=== PATIENT | male | born 1955 | race Caucasian/White ===

== ENCOUNTER 2018-06-09 10:52 | Inpatient (IN) ==
[2018-06-09] MEDS ORDERED: Sod Chloride 0.9% Inj 1,000 ML IV.CONT SCH ×2 (12:00)
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
[2018-06-09 12:37] LABS: Baso % (Auto) 0.2 % (0.0-2.0); Eos # (Auto) 0.1 th/mm3 (0.0-0.4); Eos % (Auto) 1.4 % (0.0-4.0); Hematocrit 41.6 % (39.0-51.0); Hemoglobin 14.4 gm/dL (13.0-17.0); Lymph # (Auto) 1.1 th/mm3 (1.0-4.8); Lymph % (Auto) 14.7 % (9.0-44.0); Mean Corpuscular HGB Conc 34.7 % (32.0-36.0); Mean Corpuscular Hemoglobin 28.6 pg (27.0-34.0); Mean Corpuscular Volume 82.4 fL (80.0-100.0); Mean Platelet Volume 9.1 fL (7.0-11.0); Mono # (Auto) 0.7 th/mm3 (0.0-0.9); Mono % (Auto) 9.2 % (0.0-8.0); Neut # (Auto) 5.5 th/mm3 (1.8-7.7); Neut % (Auto) 74.5 % (16.0-70.0); Platelet Count 138 th/mm3 (150-450); Red Blood Count 5.05 mil/mm3 (4.50-5.90); Red Cell Distribution Width 13.8 % (11.6-17.2); White Blood Count 7.4 th/mm3 (4.0-11.0)
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
[2018-06-09 12:47] LABS: Activated Partial Thrombo Time 28.2 sec (24.3-30.1); Prothrombin Time 10.4 sec (9.8-11.6)
[2018-06-09] MEDS ORDERED: Sod Chloride 0.9% Inj 1,000 ML IV.SIG ONE ×2 (12:55→14:05)
[2018-06-09 13:11] LABS: Alanine Aminotransferase 14 U/L (12-78); Albumin 3.5 g/dL (3.4-5.0); Alkaline Phosphatase 159 U/L (45-117); Anion Gap 10 meq/L (5-15); Aspartate Aminotransferase 9 U/L (15-37); Blood Urea Nitrogen 13 mg/dL (7-18); Calcium 8.6 mg/dL (8.5-10.1); Carbon Dioxide 26.3 meq/L (21.0-32.0); Chloride 97 meq/L (98-107); Glomerular Filtration Rate 87 mL/min (>89); Glucose,Random 447 mg/dL (74-106); Potassium 3.9 meq/L (3.5-5.1); Sodium 133 meq/L (136-145); Total Protein 7.7 g/dL (6.4-8.2)
[2018-06-09 13:13] LABS: Creatine Kinase 38 U/L (39-308)
[2018-06-09] MEDS ORDERED: Clindamycin 600 mg/NS Premix 600 MG/50 ML PIGGYBACK IV.SIG ONE (14:05)
[2018-06-09] MEDS ORDERED: Tetanus/Diphtheria Toxoid Adult Vaccine Inj 0.5 ML Vial IM ONE (14:34)
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
[2018-06-09] MEDS ORDERED: Morphine Inj 4 MG/ML Vial IV.PUSH PRN ×3 (17:15→17:45)
[2018-06-09] MEDS ORDERED: Naloxone Inj 0.4 MG/ML Vial IV.PUSH PRN (17:15)
[2018-06-09] MEDS ORDERED: Acetaminophen 325 MG Tablet PO PRN (17:15)
[2018-06-09] MEDS ORDERED: oxyCODONE/Acetaminophen 10/325 Tablet PO PRN (17:15)
[2018-06-09] MEDS ORDERED: Bisacodyl 10 MG Supp RECTAL PRN (17:15)
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
[2018-06-09] MEDS ORDERED: Gadobutrol PF 10 MMOL/10 ML Vial (for RAD) IV.SIG ONE (19:07)
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
[2018-06-09 19:29] LABS: Creatine Kinase 37 U/L (39-308)
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
--- NOTE | 2018-06-09 23:24 | US ---
EXAM DATE: 06/09/2018 10:57 PM EDT AGE/SEX: 62 years / Male INDICATIONS: Syncope. CLINICAL DATA: This is the patient's initial encounter. Patient reports that signs and symptoms have been present for 1 day and indicates a pain score of 0/10. MEDICAL/SURGICAL HISTORY: Carcinoma, bladder. Pancreatitis. Atrial fibrillation. Coronary ainsley ry disease. Pulmonary embolism. CABG. Bladder surgery. COMPARISON: No prior exams available for comparison. VELOCITY PARAMETERS: ICA/CCA Ratio: Right 0.9 , Left 0.7 ICA: Right 54 cm/sec, Left 56 cm/sec CCA: Right 60 cm/sec, Left 84 cm/sec ECA: Right 70 cm/sec, Left 71 cm/sec Vertebral: Right 54 cm/sec antegrade, Left 43 cm/sec antegrade FINDINGS: Right Carotid: Mild arteriosclerotic plaque is visualized.The waveforms are within normal limits. Left Carotid: Mild arteriosclerotic plaque is visualized. The waveforms are within normal limits. Other: None. CONCLUSION: 1. Right Internal Carotid Artery: Mild plaque formation without stenosis. 2. Left Internal Carotid Artery: Mild plaque formation without stenosis. Electronically signed by: Troy Ya MD 06/09/2018 11:22 PM EDT
[2018-06-09] MEDS ORDERED: Dextrose 50% in Water 50 ML Vial IV.PUSH PRN (23:58)
[2018-06-10 00:33] LABS: Creatine Kinase 31 U/L (39-308)
[2018-06-10] MEDS: Famotidine 20 MG Tablet PO SCH ×3 (00:59→22:32)
[2018-06-10] MEDS: Enoxaparin Inj 40 MG/0.4 ML Syringe SQ SCH ×2 (03:50→18:54)
[2018-06-10] MEDS: Lactobacillus Acidophilus/L. Spores Tablet PO SCH ×4 (03:50→22:34)
[2018-06-10] MEDS: Senna/Docusate Sodium 8.6/50 MG Tablet PO SCH ×3 (03:51→22:32)
[2018-06-10] MEDS: Sod Chloride 0.9% Inj 1,000 ML IV.CONT SCH ×3 (03:51→19:04)
[2018-06-10] MEDS: Piperacil/Tazo 3.375 GM Premix 50 ML IV.SIG SCH ×4 (03:51→19:03)
[2018-06-10 08:40] LABS: Baso % (Auto) 0.3 % (0.0-2.0); Eos # (Auto) 0.1 th/mm3 (0.0-0.4); Eos % (Auto) 2.4 % (0.0-4.0); Hematocrit 40.9 % (39.0-51.0); Hemoglobin 13.9 gm/dL (13.0-17.0); INR 1.1 Ratio; Lymph # (Auto) 1.1 th/mm3 (1.0-4.8); Lymph % (Auto) 20.7 % (9.0-44.0); Mean Corpuscular HGB Conc 33.9 % (32.0-36.0); Mean Corpuscular Volume 82.7 fL (80.0-100.0); Mean Platelet Volume 8.8 fL (7.0-11.0); Mono # (Auto) 0.6 th/mm3 (0.0-0.9); Mono % (Auto) 10.4 % (0.0-8.0); Neut # (Auto) 3.7 th/mm3 (1.8-7.7); Neut % (Auto) 66.2 % (16.0-70.0); Platelet Count 134 th/mm3 (150-450); Prothrombin Time 10.7 sec (9.8-11.6); Red Blood Count 4.94 mil/mm3 (4.50-5.90); Red Cell Distribution Width 14.1 % (11.6-17.2); White Blood Count 5.5 th/mm3 (4.0-11.0)
[2018-06-10 08:57] LABS: Alanine Aminotransferase 13 U/L (12-78); Albumin 3.2 g/dL (3.4-5.0); Alkaline Phosphatase 127 U/L (45-117); Anion Gap 9 meq/L (5-15); Aspartate Aminotransferase 10 U/L (15-37); Blood Urea Nitrogen 10 mg/dL (7-18); Calcium 8.8 mg/dL (8.5-10.1); Carbon Dioxide 25.2 meq/L (21.0-32.0); Chloride 104 meq/L (98-107); Glomerular Filtration Rate Greater Than 89 mL/min (>89); Glucose,Random 259 mg/dL (74-106); Potassium 3.9 meq/L (3.5-5.1); Sodium 138 meq/L (136-145); Total Protein 7.1 g/dL (6.4-8.2)
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
[2018-06-10] MEDS: Insulin NovoLOG Aspart Correctional Sugar Inj SQ SCH ×4 (10:22→22:46)
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
--- NOTE | 2018-06-10 16:58 | MB ---
cc: Jack Lopez MD, PhD DATE: 06/10/2018 REASON FOR CONSULTATION: Unsteadiness. HISTORY OF PRESENT ILLNESS: Mr. Couch is a 62-year-old man. He has had several episodes of intermittent unsteadiness. He feels lightheaded as though he might pass out, but does not actually pass out and unsteady, sometimes with double vision, oftentimes associated with standing up from a sitting position, fairly brief in nature, sometimes associated with a headache. He has had a number of falls from these episodes. PAST MEDICAL HISTORY: History of bladder surgery, CABG procedure, coronary artery disease, bladder cancer, atrial fibrillation. MEDICATIONS: 1. Tylenol p.r.n. 1. Dulcolax. 2. Coreg. 3. Plavix. 4. Vasotec. 5. Lovenox 40 mg subcutaneously daily. 6. Pepcid 20 mg b.i.d. 7. Florinef 0.1 mg b.i.d. ALLERGIES: LACTULOSE. NEUROLOGICAL EXAMINATION: VITAL SIGNS: Blood pressure 144/67, pulse is 80, respiratory rate is 18, temperature 98.8 degrees. HIGHER CORTICAL FUNCTIONS: Normal. CRANIAL NERVES: 2-12 are normal in detail. 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 There is no drift. REFLEXES: 2+ symmetric. IMAGING STUDIES: On MRI of the brain, there is encephalomalacia in the anterior left frontal lobe. No acute changes identified. No acute stroke is seen. MRA brain is normal. MRA of the neck is normal. CT of the brain: No acute change present. LABORATORY DATA: His white count is 5500, hemoglobin 13.9, hematocrit 40%, platelet count is 134,000. PT 10.4, INR 1, aPTT 28.2. Sodium is 138, potassium 3.9, chloride 104, CO2 25, BUN 10, creatinine 0.71, GFR is greater than 89, glucose is 248, calcium is 8.8. AST 10, ALT 13. IMPRESSION: Possible vertebrobasilar transient ischemic accident , rule out orthostatic hypotension. RECOMMENDATIONS: Add aspirin to the Plavix, 81 mg daily. We will also obtain an echocardiogram and lipid panel. Check orthostatic blood pressure and pulse. Jack Lopez MD, PhD SHAMIKA/SB , 04:38 PM , 04:56 PM
--- NOTE | 2018-06-10 18:38 | ECG ---
Date Performed: 06/09/2018 Time Performed: 12:19:46 PTAGE: 62 years EKG: Sinus rhythm POSSIBLE LEFT ATRIAL ENLARGEMENT BORDERLINE ECG Compared to PREVIOUS TRACING , previously seen anterior T-wave changes have improved. PREVIOUS TRACIN 04/27/2009 09.20 DOCTOR: Pablo Scott Interpretating Date/Time 06/10/2018 18:36:48
--- NOTE | 2018-06-10 18:38 | ECG ---
Date Performed: 06/09/2018 Time Performed: 18:21:50 PTAGE: 62 years EKG: Sinus rhythm NORMAL ECG Since PREVIOUS TRACING , no significant change noted PREVIOUS TRACIN06/09/2018 12.19 DOCTOR: Pablo Scott Interpretating Date/Time 06/10/2018 18:37:10
[2018-06-10] MEDS ORDERED: Vancomycin Consult Pharmacy 1 EACH OTHER SCH (19:00)
[2018-06-10] MEDS: Vancomycin Inj 1,000 MG in Sodium Chlor 0.9% Inj 250 ML IV.SIG SCH (22:31)
[2018-06-11] MEDS: Piperacil/Tazo 3.375 GM Premix 50 ML IV.SIG SCH ×2 (01:35→12:25)
[2018-06-11 07:51] LABS: Glomerular Filtration Rate Greater Than 89 mL/min (>89)
[2018-06-11] MEDS ORDERED: Aspirin 325 MG Tablet PO SCH (09:00)
--- NOTE | 2018-06-11 09:05 | P.PNCA ---
Subjective Interval history: Lightheadedness with standing and ambulating somewhat better. No near syncope , syncope, CP, dyspnea. Physical Exam Vital signs: Vital Signs 06/10/18 11:18 06/10/18 20:00 06/11/18 00:00 Temperature 98.7 F 98.4 F Pulse Rate 65 86 94 H Respiratory Rate 17 17 Blood Pressure 128/70 144/71 H Pulse Oximetry 96 98 06/11/18 03:46 06/11/18 07:24 Temperature 97.5 F L Pulse Rate 94 H 82 Respiratory Rate 17 16 Blood Pressure 119/66 136/73 Pulse Oximetry 96 97 Intake & Output 06/10/18 06/11/18 06/11/18 18:59 06:59 18:59 Intake Total 1400 / 1400 Balance 1400 / 1400 Intake: IV 1400 / 1400 NS Inj 1,000 ML @ 100 mls/hr IV 1000 / 1000 .CONT .Q10H LIZA Rx#:[id number] Zosyn 3.375 GM Premix 50 ML @ 150 / 150 100 mls/hr IV.SIG Q8H LIZA Rx#: [id number] Vancomycin Inj 1,000 MG In NS 250 / 250 Inj 250 ML @ 250 mls/hr IV.SIG Q12H LIZA Rx#:[id number] - Constitutional no acute distress - Routine Neck Exam Absent: JVD - Routine Respiratory Exam Present: CTA bilaterally - Routine Cardiovascular Exam Present: RRR, S1, S2. Absent: murmur, gallop - Routine Abdominal Exam Present: soft, normoactive bowel sounds. Absent: tenderness, organomegaly - Routine Extremities Exam Absent: cyanosis, clubbing, edema Assessment and Plan - Assessment (1) Dizziness Code(s): R42 - Dizziness and giddiness Status: Acute Plan: Stable overnight. Mild orthostatic symptoms this morning. Dr. Lopez's consult noted. No new recommendations from cardiac standpoint. Continue Florinef. Recommend home BP monitoring. OK for discharge from my standpoint, close f/u with Dr. Refugio Figueroa. (2) Coronary artery disease Code(s): I25.10 - Atherosclerotic heart disease of [place] coronary artery without angina pectoris Status: Chronic Plan: Stable CAD status. Chronic atypical fleeting CP's. No ischemia on recent nuclear stress test. Recommend medical therapy with beta lauro, CHRISTINE-I, aspirin or Plavix in light of history of AL. (3) Hypertension Code(s): I10 - Essential (primary) hypertension Status: Chronic Plan: Fluctuating BP's. Recommend home BP monitoring, f/u with PCP. - Plan Code Status: full code Discussed Condition With: patient (2) Coronary artery disease Qualifiers: Coronary Disease-Associated Artery/Lesion type: [place] artery [place] vs. transplanted heart: [place] heart Associated angina: without angina Qualified Code(s): I25.10 - Atherosclerotic heart disease of [place] coronary artery without angina pectoris (3) Hypertension Qualifiers: Hypertension type: essential hypertension Qualified Code(s): I10 - Essential (primary) hypertension
[2018-06-11] MEDS: Famotidine 20 MG Tablet PO SCH (09:22)
[2018-06-11] MEDS: Vancomycin Inj 1,000 MG in Sodium Chlor 0.9% Inj 250 ML IV.SIG SCH (09:23)
[2018-06-11] MEDS: Senna/Docusate Sodium 8.6/50 MG Tablet PO SCH (09:23)
[2018-06-11] MEDS: Sod Chloride 0.9% Inj 1,000 ML IV.CONT SCH ×2 (09:23→12:24)
[2018-06-11] MEDS: Lactobacillus Acidophilus/L. Spores Tablet PO SCH ×2 (09:23→12:26)
[2018-06-11] MEDS: Insulin NovoLOG Aspart Correctional Sugar Inj SQ SCH ×2 (09:37→13:15)
--- NOTE | 2018-06-11 12:32 | P.PN ---
Physical Exam Vital signs: Vital Signs 06/10/18 20:00 06/11/18 00:00 06/11/18 03:46 Temperature 98.7 F 98.4 F Pulse Rate 86 94 H 94 H Respiratory Rate 17 17 17 Blood Pressure 128/70 144/71 H 119/66 Pulse Oximetry 96 98 96 06/11/18 07:24 06/11/18 12:00 Temperature 97.5 F L 97.5 F L Pulse Rate 82 87 Respiratory Rate 16 16 Blood Pressure 136/73 132/69 Pulse Oximetry 97 96 Intake & Output 06/10/18 06/11/18 06/11/18 18:59 06:59 18:59 Intake Total 1450 / 1450 Balance 1450 / 1450 Intake: IV 1450 / 1450 NS Inj 1,000 ML @ 100 mls/hr IV 1000 / 1000 .CONT .Q10H LIZA Rx#:[id number] Zosyn 3.375 GM Premix 50 ML @ 200 / 200 100 mls/hr IV.SIG Q8H LIZA Rx#: [id number] Vancomycin Inj 1,000 MG In NS 250 / 250 Inj 250 ML @ 250 mls/hr IV.SIG Q12H LIZA Rx#:[id number] Results - Labs CBC & Chem 7: 06/10/18 08:19 06/11/18 06:20 Laboratory Results - last 24 hr 06/10/18 06/10/18 06/10/18 13:20 18:46 22:40 Creatinine Estimated GFR POC Glucose 242 H 258 H 244 H 06/11/18 06/11/18 06:20 09:28 Creatinine 0.64 Estimated GFR Greater than 89 POC Glucose 242 H
[2018-06-11] MEDS ORDERED: Butalbital/APAP/Caff 50/325/40 MG Tablet PO PRN (12:33)
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
--- NOTE | 2018-06-11 16:18 | ECHRPT ---
Indication: CVA/TIA CONCLUSIONS Normal left ventricular size. Mild concentric left ventricular hypertrophy. The left ventricular systolic function is moderately reduced with an estimated ejection fraction in the range of 40-45%. There is distinct regional wall motion abnormalities. Trivial pulmonary valve regurgitation. The inferior vena cava was not well visualized. BP: / HR: Rhythm: Sinus MEASUREMENTS (Male / Female) Normal Values Technical Quality:Fair 2D ECHO LVOT Diameter 2.3 cm Aortic Root Diameter 3.6 cm M-MODE AV Cusp Separation MM 1.9 cm DOPPLER AV Peak Velocity 93.7 cm/s AV Peak Gradient 3.5 mmHg AV Mean Gradient 2.0 mmHg AV Velocity Time Integral 17.5 cm LVOT Peak Velocity 66.2 cm/s LVOT Peak Gradient 1.8 mmHg LVOT Velocity Time Integral 11.6 cm AV Area Cont Eq vti 2.8 cm AV Area Cont Eq pk 2.9 cm Mitral E Point Velocity 71.1 cm/s Mitral A Point Velocity 78.0 cm/s Mitral E to A Ratio 0.9 LV E' Lateral Velocity 6.2 cm/s Mitral E to LV E' Lateral Ratio 11.4 LV E' Septal Velocity 10.3 cm/s Mitral E to LV E' Septal Ratio 6.9 PV Peak Velocity 56.4 cm/s PV Peak Gradient 1.3 mmHg FINDINGS LEFT VENTRICLE Normal left ventricular size. Mild concentric left ventricular hypertrophy. The left ventricular systolic function is moderately reduced with an estimated ejection fraction in the range of 40-45%. There is distinct regional wall motion abnormalities. RIGHT VENTRICLE Normal right ventricular size and systolic function. LEFT ATRIUM The left atrial size is normal. RIGHT ATRIUM The right atrial size is normal. ATRIAL SEPTUM No atrial level shunt is demonstrated by color flow Doppler interrogation. AORTA The aortic root and proximal ascending aorta are not well visualized. MITRAL VALVE Structurally normal mitral valve. No mitral valve stenosis or regurgitation. AORTIC VALVE No aortic valve stenosis or regurgitation. TRICUSPID VALVE Structurally normal tricuspid valve. No tricuspid valve stenosis or regurgitation. PULMONARY VALVE Trivial pulmonary valve regurgitation. VESSELS The inferior vena cava was not well visualized. PERICARDIUM No pericardial effusion. Francesco Merida MD, FACC, FSCAI (Electronically Signed) Final Date:11 June 2018 16:17
[2018-06-12] MEDS ORDERED: Pharmacy Ordered Lab Info OTHER ONE (08:45)
== END 2018-06-11 18:15 | disposition home or self-care (01) ==
LOC: NEDA 10:52 → NEPC 10:52 → NEPHCDU 18:23
PROVIDERS: ADMIT Internal Medicine; ATTEND Internal Medicine
DX: Z86.711 Personal history of pulmonary embolism; I25.2 Old myocardial infarction; I95.1 Orthostatic hypotension; I25.10 Atherosclerotic heart disease of native coronary artery without angina pectoris; Z85.51 Personal history of malignant neoplasm of bladder; I48.91 Unspecified atrial fibrillation; Z87.891 Personal history of nicotine dependence; Z86.73 Personal history of transient ischemic attack (TIA), and cerebral infarction without residual deficits; E11.9 Type 2 diabetes mellitus without complications; T23.232A Burn of second degree of multiple left fingers (nail), not including thumb, initial encounter; R26.9 Unspecified abnormalities of gait and mobility; Z95.1 Presence of aortocoronary bypass graft; L03.114 Cellulitis of left upper limb